=== PATIENT | male | born 1950 | race Caucasian/White ===

== ENCOUNTER 2025-05-06 11:35 | Inpatient (IN) | payer BC, MEDICARE ==
[~2025-05-06 11:35] MED LIST: Iopamidol 370 76% 100 ML VIAL ONE
[2025-05-06] MEDS ORDERED: Aspirin Chewable 81 MG TAB ONE (11:45)
[2025-05-06] MEDS ORDERED: Heparin 10,000 UNITS/ 10 ML VIAL ONE ×2 (11:45→11:49)
[2025-05-06] MEDS ORDERED: Heparin 25,000 UNITS/D5W 500 ml bag ONE (11:45)
[2025-05-06] MEDS ORDERED: PHENYLEPHRINE-NS 100 MCG/ML 10 ML SYRINGE ONE (11:49)
[2025-05-06] MEDS ORDERED: Nitroglycerin 50 MG/250 ML BOT 250 ML ONE (11:49)
[2025-05-06] MEDS ORDERED: EPINEPHrine 1 MG/10 ML Abboject SYRINGE ONE (11:49)
[2025-05-06] MEDS ORDERED: Adenosine 6 mg (2 mL) VIAL ONE (11:49)
[2025-05-06] MEDS ORDERED: Lidocaine 1% (PF) 30 ML VIAL ONE (11:49)
[2025-05-06 12:02] LABS: #Basophils 0.03 10x3/uL (0.0-0.2); #Eosinophils 0.08 10x3/uL (0.0-0.7); #Monocytes 0.87 10x3/uL (0.11-0.59); #Neutrophils 7.20 10x3/uL (1.40-6.50); %Basophils 0.3 % (0.0-1.0); %Eosinophils 0.9 % (0.0-10.0); %Lymphocytes 7.9 % (21.0-51.0); %Monocytes 9.8 % (0.0-10.0); %Neutrophils 80.8 % (42.0-75.0); Hematocrit 41.4 % (42.0-52.0); Hemoglobin 14.3 g/dL (14.0-18.0); Mean Corpuscular Hemoglobin 31.8 pg (27.0-31.0); Mean Corpuscular Volume 92.2 fL (78.0-98.0); Platelet Count 192 10x3/uL (130-400); Red Blood Cell (RBC) Count 4.49 mill/uL (4.70-6.10); White Blood Cell (WBC) Count 8.91 10x3/uL (4.8-10.8)
[2025-05-06 12:17] LABS: INR-International Normal Ratio 1.0; Prothrombin Time 12.9 sec (12.0-14.7)
[2025-05-06 12:19] LABS: PTT 27.3 sec (22.9-36.1)
[2025-05-06 12:20] LABS: ALT (SGPT) 16 U/L (Less than 45); AST (SGOT) 28 U/L (11-34); Albumin 4.0 g/dL (3.1-4.5); Alkaline Phosphatase 60 U/L (40-110); Anion Gap 13 mmol/L (10-20); BUN (Urea Nitrogen) 24 mg/dL (8.4-25.7); Bilirubin, Total 0.8 mg/dL (0.3-1.2); Calc. Creatinine Clearance 0 mL/min (70-130); Calcium 9.1 mg/dL (7.8-10.44); Carbon Dioxide 25 mmol/L (23-31); Chloride 98 mmol/L (98-107); Globulin 2.5 g/dL (2.4-3.5); Glucose 111 mg/dL (83-110); Potassium 3.8 mmol/L (3.5-5.1); Sodium 132 mmol/L (136-145)
[2025-05-06] MEDS ORDERED: Glucagon 1 MG/ML KIT IM PRN (15:14)
[2025-05-06] MEDS ORDERED: Dextrose 50% Abboject 50 ML SYRINGE SLOW IVP PRN (15:14)
[2025-05-06 17:10] VITALS: BMI 29.1
[2025-05-07 04:57] LABS: #Basophils Less than 0.03 10x3/uL (0.0-0.2); #Eosinophils 0.10 10x3/uL (0.0-0.7); #Monocytes 0.67 10x3/uL (0.11-0.59); #Neutrophils 4.60 10x3/uL (1.40-6.50); %Basophils 0.3 % (0.0-1.0); %Eosinophils 1.7 % (0.0-10.0); %Lymphocytes 9.4 % (21.0-51.0); %Monocytes 11.2 % (0.0-10.0); %Neutrophils 76.9 % (42.0-75.0); Hematocrit 35.5 % (42.0-52.0); Hemoglobin 11.8 g/dL (14.0-18.0); Mean Corpuscular Hemoglobin 31.7 pg (27.0-31.0); Mean Corpuscular Volume 95.4 fL (78.0-98.0); Platelet Count 140 10x3/uL (130-400); Red Blood Cell (RBC) Count 3.72 mill/uL (4.70-6.10); White Blood Cell (WBC) Count 5.98 10x3/uL (4.8-10.8)
[2025-05-07 06:33] LABS: Albumin 3.0 g/dL (3.1-4.5); Calcium 7.8 mg/dL (7.8-10.44); Chloride 110 mmol/L (98-107); Potassium 3.3 mmol/L (3.5-5.1); Sodium 136 mmol/L (136-145)
[2025-05-07 06:34] LABS: Globulin 1.8 g/dL (2.4-3.5); Glucose 116 mg/dL (83-110)
[2025-05-07 06:35] LABS: Anion Gap 10 mmol/L (10-20); Carbon Dioxide 19 mmol/L (23-31); Triglycerides 73 mg/dL (Less than 150)
[2025-05-07 06:37] LABS: Alkaline Phosphatase 48 U/L (40-110); Bilirubin, Total 0.7 mg/dL (0.3-1.2)
[2025-05-07 06:38] LABS: BUN (Urea Nitrogen) 19 mg/dL (8.4-25.7); Calc. Creatinine Clearance 80 mL/min (70-130)
[2025-05-07 06:39] LABS: Cholesterol 164 mg/dl (< 200 Desired)
[2025-05-07 06:40] LABS: ALT (SGPT) 30 U/L (Less than 45); AST (SGOT) 138 U/L (11-34); CK (CPK) 1149 U/L (30-200); Cardiac Risk 4.3 (Less than 4.5); HDL Cholesterol 38 mg/dL (>60 Neg Risk); LDL Cholesterol, Calculated 111 mg/dL
[2025-05-07] MEDS: Aspirin Chewable 81 MG TAB PO SCH (08:32)
[2025-05-07 16:52] LABS: Potassium 3.6 mmol/L (3.5-5.1)
[2025-05-08] MEDS: diphenhydrAMINE 25 MG CAP PO SCH (03:51)
[2025-05-08 07:55] LABS: #Basophils 0.04 10x3/uL (0.0-0.2); #Eosinophils 0.17 10x3/uL (0.0-0.7); #Monocytes 0.93 10x3/uL (0.11-0.59); #Neutrophils 7.84 10x3/uL (1.40-6.50); %Basophils 0.4 % (0.0-1.0); %Eosinophils 1.8 % (0.0-10.0); %Lymphocytes 6.0 % (21.0-51.0); %Monocytes 9.7 % (0.0-10.0); %Neutrophils 81.7 % (42.0-75.0); Hematocrit 38.9 % (42.0-52.0); Hemoglobin 12.9 g/dL (14.0-18.0); Mean Corpuscular Hemoglobin 31.9 pg (27.0-31.0); Mean Corpuscular Volume 96.0 fL (78.0-98.0); Platelet Count 144 10x3/uL (130-400); Red Blood Cell (RBC) Count 4.05 mill/uL (4.70-6.10); White Blood Cell (WBC) Count 9.60 10x3/uL (4.8-10.8)
[2025-05-08 08:10] LABS: ALT (SGPT) 29 U/L (Less than 45); AST (SGOT) 68 U/L (11-34); Albumin 3.3 g/dL (3.1-4.5); Alkaline Phosphatase 58 U/L (40-110); Anion Gap 12 mmol/L (10-20); BUN (Urea Nitrogen) 12 mg/dL (8.4-25.7); Bilirubin, Total 0.6 mg/dL (0.3-1.2); Calc. Creatinine Clearance 86 mL/min (70-130); Calcium 8.4 mg/dL (7.8-10.44); Carbon Dioxide 21 mmol/L (23-31); Chloride 109 mmol/L (98-107); Globulin 2.4 g/dL (2.4-3.5); Glucose 92 mg/dL (83-110); Potassium 3.9 mmol/L (3.5-5.1); Sodium 138 mmol/L (136-145)
[2025-05-09] MEDS: diphenhydrAMINE 25 MG CAP PO SCH (01:22)
[2025-05-09 05:04] LABS: #Basophils Less than 0.03 10x3/uL (0.0-0.2); #Eosinophils 0.15 10x3/uL (0.0-0.7); #Monocytes 1.13 10x3/uL (0.11-0.59); #Neutrophils 5.54 10x3/uL (1.40-6.50); %Basophils 0.3 % (0.0-1.0); %Eosinophils 2.0 % (0.0-10.0); %Lymphocytes 8.0 % (21.0-51.0); %Monocytes 15.1 % (0.0-10.0); %Neutrophils 74.3 % (42.0-75.0); Hematocrit 37.5 % (42.0-52.0); Hemoglobin 12.6 g/dL (14.0-18.0); Mean Corpuscular Hemoglobin 31.7 pg (27.0-31.0); Mean Corpuscular Volume 94.2 fL (78.0-98.0); Platelet Count 140 10x3/uL (130-400); Red Blood Cell (RBC) Count 3.98 mill/uL (4.70-6.10); White Blood Cell (WBC) Count 7.46 10x3/uL (4.8-10.8)
[2025-05-09 05:09] LABS: Anion Gap 12 mmol/L (10-20); BUN (Urea Nitrogen) 13 mg/dL (8.4-25.7); Calc. Creatinine Clearance 89 mL/min (70-130); Calcium 8.7 mg/dL (7.8-10.44); Carbon Dioxide 23 mmol/L (23-31); Chloride 109 mmol/L (98-107); Glucose 89 mg/dL (83-110); Magnesium 1.8 mg/dL (1.6-2.6); Potassium 3.6 mmol/L (3.5-5.1); Sodium 140 mmol/L (136-145)
[2025-05-09] MEDS: Memantine 5 MG TAB PO SCH (10:16)
[2025-05-09] MEDS: Metoprolol Succinate XL 25 MG ER.TAB PO SCH (10:16)
[2025-05-09] MEDS: CO Q-10 CAPSULE 100 MG PO SCH (10:18)
[2025-05-10 08:18] VITALS: TEMP 98.5
[2025-05-10 11:46] VITALS: BP 120/72
== END 2025-05-10 11:59 | disposition home or self-care (01) | DRG 322 ==
LOC: ERS 11:35 → CCU 12:02 → CCL 12:02 → CCU 14:04 → 2NO 05-08 12:48
PROVIDERS: ADMIT Internal Medicine Cardiovascular Disease; ATTEND Internal Medicine
PROC: 027035Z Dilation of Coronary Artery, One Artery with Two Drug-eluting Intraluminal Devices, Percutaneous Approach (ICD-10-PCS; principal; 2025-05-06)
PROC: B2151ZZ Fluoroscopy of Left Heart using Low Osmolar Contrast (ICD-10-PCS; 2025-05-06)
PROC: 4A023N7 Measurement of Cardiac Sampling and Pressure, Left Heart, Percutaneous Approach (ICD-10-PCS; 2025-05-06)
PROC: B2111ZZ Fluoroscopy of Multiple Coronary Arteries using Low Osmolar Contrast (ICD-10-PCS; 2025-05-06)
PROC: 5A1223Z Performance of Cardiac Pacing, Continuous (ICD-10-PCS; 2025-05-06)
PROC: 02PA3MZ Removal of Cardiac Lead from Heart, Percutaneous Approach (ICD-10-PCS; 2025-05-08)
DX: I21.4 Non-ST elevation (NSTEMI) myocardial infarction (principal); I10 Essential (primary) hypertension; E78.5 Hyperlipidemia, unspecified; F10.90 Alcohol use, unspecified, uncomplicated; F03.90 Unspecified dementia, unspecified severity, without behavioral disturbance, psychotic disturbance, mood disturbance, and anxiety; Z98.890 Other specified postprocedural states; Z82.49 Family history of ischemic heart disease and other diseases of the circulatory system; Z79.899 Other long term (current) drug therapy
CPT/HCPCS: 33210; 36415; 36416; 71045; 80048; 80053; 80061; 82550; 83036; 83735; 83880; 84484; 85025; 85347; 85610; 85730; 86850; 86900; 86901; 92928; 93005; 93010; 93306; 93458; 93798; 94760; 96374; 97139; C1751; C1769; C1874; C1887; C1894; C9600; J0153; J0165; J0461; J1265; J1644; J7030; Q9967